=== PATIENT | female | born 1995 | race Caucasian/White ===

== ENCOUNTER 2018-07-05 14:30 | Outpatient (CLI) | payer OTHER ==
[2018-07-05] MEDS ORDERED: DEXTROSE 5%-LACTATED RINGERS 1,000 ML IV PRN (15:08)
[2018-07-05] MEDS ORDERED: PROMETHAZINE HCL INJ 25 MG/1 ML VIAL IV ONE (15:09)
[2018-07-05] MEDS ORDERED: RINGERS SOLUTION,LACTATED 1,000 ML IV ONE (15:10)
[2018-07-05] MEDS ORDERED: PROMETHAZINE HCL INJ 25 MG/1 ML VIAL ONE (15:49)
[2018-07-05 16:37] LABS: APPEARANCE,URINE CLEAR; BILIRUBIN,URINE NEGATIVE (NEGATIVE); COLOR,URINE COLORLESS; GLUCOSE, URINE NEGATIVE (NEGATIVE); KETONES,URINE TRACE mg/dL (NEGATIVE); LEUKOCYTE ESTERASE,URINE NEGATIVE (NEGATIVE); NITRITE,URINE NEGATIVE (NEGATIVE); PROTEIN,URINE NEGATIVE (NEGATIVE); URINE SPECIFIC GRAVITY 1.003; UROBILINOGEN,URINE NEGATIVE mg/dL (<2.0)
[2018-07-05 16:49] LABS: URINE AMPHETAMINES SCREEN NEGATIVE; URINE BARBITURATES SCREEN NEGATIVE; URINE BENZODIAZEPINES SCREEN NEGATIVE; URINE COCAINE SCREEN NEGATIVE; URINE MARIJUANA (THC) SCREEN NEGATIVE; URINE METHADONE SCREEN NEGATIVE; URINE PHENCYCLIDINE SCREEN NEGATIVE
== END 2018-07-05 18:29 | disposition home or self-care (01) ==
LOC: LC 14:30
PROVIDERS: ATTEND Obstetrics & Gynecology Gynecology
PROC: 4A1HXCZ Monitoring of Products of Conception, Cardiac Rate, External Approach (ICD-10-PCS; principal; 2018-07-05)
DX: O26.893 Other specified pregnancy related conditions, third trimester (principal); M54.9 Dorsalgia, unspecified; Z3A.34 34 weeks gestation of pregnancy
CPT/HCPCS: 81001; 80307; 59025; J2550

== ENCOUNTER 2018-07-07 01:09 | Inpatient (IN) | payer OTHER ==
[2018-07-07] MEDS ORDERED: NALBUPHINE HCL INJ 10 MG/1 ML AMPULE INJ ONE (02:08)
[2018-07-07] MEDS ORDERED: PROMETHAZINE HCL INJ 25 MG/1 ML VIAL IV ONE (02:08)
[2018-07-07 02:21] LABS: ABSOLUTE EOSINOPHILS # (AUTO) 0.1 10^3/uL (0.0-0.6); ABSOLUTE LYMPHOCYTES (AUTO) 2.1 10^3/uL (0.5-4.7); ABSOLUTE MONOCYTES (AUTO) 0.6 10^3/uL (0.1-1.4); ABSOLUTE NEUT (AUTO) 8.8 10^3/uL (1.7-8.2); BASOPHILS % (AUTO) 0.3 % (0-2); HEMATOCRIT 34.5 % (36.0-47.0); HEMOGLOBIN 11.7 g/dL (12.0-15.5); LYMPHOCYTES % (AUTO) 17.8 % (13-45); MEAN CORPUSCULAR HEMOGLOBIN 29.5 pg (27.0-33.4); MEAN CORPUSCULAR VOLUME 87 fl (80-97); MONOCYTES % (AUTO) 5.4 % (3-13); PLATELET COUNT 280 10^3/uL (150-450); RED BLOOD COUNT 3.98 10^6/uL (3.72-5.28); SEGMENTED NEUTROPHILS % (AUTO) 75.5 % (42-78); TOTAL CELLS COUNTED % (AUTO) 100 %; WHITE BLOOD COUNT 11.7 10^3/uL (4.0-10.5)
[2018-07-07] MEDS ORDERED: RINGERS SOLUTION,LACTATED 1,000 ML IV PRN (02:28)
[2018-07-07 02:34] LABS: APPEARANCE,URINE CLOUDY; BILIRUBIN,URINE NEGATIVE (NEGATIVE); COLOR,URINE YELLOW; GLUCOSE, URINE NEGATIVE (NEGATIVE); KETONES,URINE 20 mg/dL (NEGATIVE); LEUKOCYTE ESTERASE,URINE SMALL (NEGATIVE); NITRITE,URINE NEGATIVE (NEGATIVE); PROTEIN,URINE 30 mg/dL (NEGATIVE); URINE SPECIFIC GRAVITY 1.018; UROBILINOGEN,URINE NEGATIVE mg/dL (<2.0)
[2018-07-07 02:36] LABS: ALANINE AMINOTRANSFERASE 11 U/L (9-52); ALBUMIN 3.1 g/dL (3.5-5.0); ALKALINE PHOSPHATASE 103 U/L (38-126); AMYLASE 54 U/L (30-110); ANION GAP 10 (5-19); ASPARTATE AMINO TRANSFERASE 20 U/L (14-36); BILIRUBIN,DIRECT 0.3 mg/dL (0.0-0.4); BILIRUBIN,TOTAL 0.5 mg/dL (0.2-1.3); BLOOD UREA NITROGEN 5 mg/dL (7-20); CALCIUM 8.7 mg/dL (8.4-10.2); CARBON DIOXIDE 20 mmol/L (22-30); CHLORIDE 110 mmol/L (98-107); GLUCOSE 103 mg/dL (75-110); LIPASE 118.9 U/L (23-300); POTASSIUM 3.9 mmol/L (3.6-5.0); SODIUM 139.5 mmol/L (137-145); TOTAL PROTEIN 5.5 g/dL (6.3-8.2)
[2018-07-07 02:46] LABS: URINE AMPHETAMINES SCREEN NEGATIVE; URINE BARBITURATES SCREEN NEGATIVE; URINE BENZODIAZEPINES SCREEN NEGATIVE; URINE COCAINE SCREEN NEGATIVE; URINE MARIJUANA (THC) SCREEN NEGATIVE; URINE METHADONE SCREEN NEGATIVE; URINE PHENCYCLIDINE SCREEN NEGATIVE
[2018-07-07] MEDS ORDERED: PROMETHAZINE HCL INJ 25 MG/1 ML VIAL ONE ×2 (02:57→07:15)
[2018-07-07] MEDS ORDERED: NALBUPHINE HCL INJ 10 MG/1 ML AMPULE ONE ×2 (02:58→07:15)
--- NOTE | 2018-07-07 03:20 | RADIOLOGY REPORT (SQ) ---
EXAM DESCRIPTION: US RETROPERITONEUM COMPLETED DATE/TME: 07/07/2018 00:00 CLINICAL HISTORY: 23 years Female, EVAL FOR kidney stone, abscessor other abnormality Comparison: None. LIMITATIONS: None. FINDINGS: 10-cm right kidney, 12-cm left kidney mild prominence of the left renal collecting system, and obscured urinary bladder appear otherwise of normal size, shape, echotexture, and vascularity. Gravid uterus. IMPRESSION: No acute findings. Obscured urinary bladder. Gravid uterus.
[2018-07-07] MEDS: RINGERS SOLUTION,LACTATED 1,000 ML IV PRN ×3 (03:40→21:55)
--- NOTE | 2018-07-07 04:20 | Admission Physical ---
Datetime Report Generated by CPN: 07/07/2018 04:20 CURRENT ADMISSION Chief Complaint: Maternal Discomfort; Other Chief Complaint Other: Nephrolithiasis or Pyelo Indication for Induction: Not Applicable Admit Impression : , Intrauterine Admit Plan: Admit to Unit; Observation/Evaluation ALLERGIES Medication Allergies: No Medication Allergies: No Known Allergies (07/07/2018) Latex: No Latex Allergies Food Allergies: no Environmental Allergies: dust mites OBSTETRICAL HISTORY EDC: 08/18/2018 00:00 : 4 Para: 0 Term: 0 : 0 SAB: 1 IAB: 0 Ectopic: 1 Livin Cesareans: 0 VBACs: 0 Multiple Births: 0 Gestational Diabetes: No Rh Sensitization: No Incompetent Cervix: No RADHAMES: No Infertility: No ART Treatment: No Uterine Anomaly: No IUGR: No Hx Previous C/S: No Macrosomia: No Hx Loss/Stillborn: No PIH: No Hx : No Placenta Previa/Abruption: No Depression/PP Depression: No Post Hemorrhage: No Current Procedures: Ultrasound Obstetrical History Comments: G1: SAB G2: Ectopic G3: SAB G4: current SEE RECORDS Alcohol: No Marijuana : No Cocaine: No Other Illicit Drugs: No Cigarettes: Never Smoker. 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 Heart Disease: No Hosp/Surgery: Yes Autoimmune Disorder: No Anesthetic Complications: Yes Kidney Disease: No Abnormal Pap Smear: No Neuro/Epilepsy: No Psychiatric Disorders: No Other Medical Diseases: No Hepatitis/Liver Disease: No Significant Family History: No Varicosities/Phlebitis: No Trauma/Violence : No Thyroid Dysfunction: No Medical History Comments: ectopic/appendectomy and gallbladder/vomiting after anesthesia INFECTIOUS HISTORY Gonorrhea: No Genital Herpes: No Chlamydia: No Tuberculosis: No Syphilis: No Hepatitis: No HIV/AIDS Exposure: No Rash or Viral Illness: No HPV: No PHYSICAL EXAM General: Normal HEENT: Normal Neurologic: Normal Thyroid: Deferred Heart: Normal Lungs: Normal Breast: Deferred Back: Normal Abdomen: Normal Genitourinary Exam: Normal Extremities: Normal DTRs: Normal Pelvic Type: Adequate Physical Exam Comments: Mild CVAT (really pain is just below CVA) versus flank pain. she appears very uncomfortable and is vomiting repetitively Vital Signs: Reviewed VAGINAL EXAM Dilatation: 0 Effacement: 0 Station: -3 MEMBRANES Membranes: Intact FETUS A EGA: 34.0 Monitoring: External US FHR- Baseline: 125 Variability: Moderate 6-25bpm Accelerations: 15X15 Decelerations: None FHR Category: Category I Presentation: Vertex Admit Comment: 23yo at 34+0ega (h/o SAB x 2 and h/o ectopic) presents with several day history of left sided and left flank pain. SHe also has nausea and vomiting. Temp 99.2. Left Upper quadrant US done. Blood on UA. Pt was seen yesterday for same c/o and then was discharge and then presented last evening to Labor and delivery at [facility]. She is now here for worsening paina nd vomiting. Appears to be c/w nephrolithiasis - also mild elev WBC. Will admit for pain control and antiemetics. Will begin Rocephin BID for prophy with high suspicion for nephrolithiasis. Urine culture sent. Reassuring FWB. Begin with phenergan and Nubain. PLANS FOR LABOR AND DELIVERY Labor and Delivery: None Pain Management: Epidural Feeding Preference: Breast Benefit of Breast Feed Discussed: Yes Circumcision: Yes INFORMED CONSENT Informed Consent Obtained: Risks, Benefits and Alternatives Discussed Signature: with User ID: [email or web address]
[2018-07-07] MEDS ORDERED: PROMETHAZINE HCL INJ 25 MG/1 ML VIAL IV PRN (04:22)
[2018-07-07] MEDS ORDERED: CEFTRIAXONE INJ 1000 MG VIAL ONE (04:52)
[2018-07-07] MEDS ORDERED: CEFTRIAXONE 1 GM/D5W RTU 1 GM/50 ML RTUPB IV ONE (05:00)
[2018-07-07] MEDS ORDERED: ACETAMINOPHEN 650 MG SUPP.RECT PR PRN (07:49)
[2018-07-07] MEDS ORDERED: ACETAMINOPHEN WITH CODEINE #3 TABLET PO PRN (07:49)
[2018-07-07] MEDS: PRENATAL VITAMIN W DHA CAPSULE PO SCH (09:39)
[2018-07-07] MEDS: CEFTRIAXONE 1 GM/D5W RTU 1 GM/50 ML RTUPB IV SCH ×2 (09:39→17:29)
[2018-07-07] MEDS: FAMOTIDINE 20 MG TABLET PO SCH ×2 (09:40→21:55)
[2018-07-07] MEDS: DOCUSATE SODIUM 100 MG CAPSULE PO SCH ×2 (09:40→17:28)
[2018-07-07] MEDS: SENNOSIDES/DOCUSATE 8.6-50 MG 1 EACH TABLET PO SCH (09:40)
[2018-07-07] MEDS: HYDROMORPHONE HCL INJ/PF 2 MG/ML AMPULE IV PRN ×2 (12:51→20:27)
[2018-07-07] MEDS ORDERED: CEFTRIAXONE 1 GM/D5W RTU 1 GM/50 ML RTUPB IV SCH (22:00)
[2018-07-08] MEDS: HYDROMORPHONE HCL INJ/PF 2 MG/ML AMPULE IV PRN ×2 (05:24→21:00)
[2018-07-08] MEDS: RINGERS SOLUTION,LACTATED 1,000 ML IV PRN ×2 (05:24→19:04)
[2018-07-08] MEDS: ACETAMINOPHEN WITH CODEINE #3 TABLET PO PRN ×2 (10:32→15:44)
[2018-07-08] MEDS: DOCUSATE SODIUM 100 MG CAPSULE PO SCH ×2 (10:33→18:22)
[2018-07-08] MEDS: FAMOTIDINE 20 MG TABLET PO SCH ×2 (10:33→21:36)
[2018-07-08] MEDS: PRENATAL VITAMIN W DHA CAPSULE PO SCH (10:33)
[2018-07-08] MEDS: SENNOSIDES/DOCUSATE 8.6-50 MG 1 EACH TABLET PO SCH (10:34)
[2018-07-08] MEDS: CEFTRIAXONE 1 GM/D5W RTU 1 GM/50 ML RTUPB IV SCH ×2 (10:34→21:36)
--- NOTE | 2018-07-08 20:09 | PDOC PROGRESS REPORT ---
Subjective Progress Note for:: 07/08/18 Subjective:: continues to c/o significant pain that is moving around to side Reason For Visit: and flank pain, suspicious for nephrolithiasis Physical Exam - Physical Exam Vital Signs: Temp Pulse Resp BP Pulse Ox 98.4 F 92 16 119/68 96 07/08/18 15:19 07/08/18 15:19 07/08/18 15:19 07/08/18 15:19 07/08/18 15:19 Intake & Output 07/07/18 07/08/18 07/09/18 06:59 06:59 06:59 Intake Total 1000 3235 1000 Output Total 1500 Balance 1000 1735 1000 Weight 97 kg 92 kg General appearance: PRESENT: no acute distress, cooperative Result Laboratory Results: 07/07/18 02:07 07/07/18 02:07 Impressions: Renal Ultrasound 07/07/18 00:00 IMPRESSION: No acute findings. Obscured urinary bladder. Gravid uterus. Assessment & Plan - Diagnosis (1) Nephrolithiasis Is this a current diagnosis for this admission?: Yes (2) Vomiting Qualifiers: Vomiting type: unspecified Nausea presence: with nausea Is this a current diagnosis for this admission?: Yes - Time Time Spent with patient: Less than 15 minutes Medications reviewed and adjusted accordingly: Yes - try to use PO pain meds Anticipated discharge: Home Within: within 24 hours - Inpatient Certification Based on my medical assessment, after consideration of the patient's comorbidities, presenting symptoms, or acuity I expect that the services needed warrant INPATIENT care.: Yes I certify that my determination is in accordance with my understanding of Medicare's requirements for reasonable and necessary INPATIENT services [42 CFR 412.3e].: Yes Medical Necessity: Need For IV Fluids, Need for Pain Control - Plan Summary Plan Summary: patient still c/o significant pain. will continue hydration and plan for discharge in the AM
[2018-07-09] MEDS: HYDROMORPHONE HCL INJ/PF 2 MG/ML AMPULE IV PRN (02:45)
--- NOTE | 2018-07-09 06:40 | PDOC PROGRESS REPORT ---
Subjective Progress Note for:: 07/09/18 Subjective:: continues to c/o significant pain that is moving around to side. Had to have 2 doses of iv dilaudid overnight to maintain pain control. Reason For Visit: Physical Exam - Physical Exam Vital Signs: Temp Pulse Resp BP Pulse Ox 98.2 F 82 16 116/64 97 07/09/18 03:47 07/09/18 03:47 07/09/18 00:00 07/09/18 03:47 07/09/18 03:47 Intake & Output 07/07/18 07/08/18 07/09/18 06:59 06:59 06:59 Intake Total 1000 3235 1000 Output Total 1500 700 Balance 1000 1735 300 Weight 97 kg 92 kg General appearance: PRESENT: no acute distress, cooperative - +CVA tenderness on left lower flank Result Laboratory Results: 07/07/18 02:07 07/07/18 02:07 Impressions: Renal Ultrasound 07/07/18 00:00 IMPRESSION: No acute findings. Obscured urinary bladder. Gravid uterus. Assessment & Plan - Diagnosis (1) Nephrolithiasis Is this a current diagnosis for this admission?: Yes (2) Vomiting Qualifiers: Vomiting type: unspecified Nausea presence: with nausea Is this a current diagnosis for this admission?: Yes - Time Time Spent with patient: Less than 15 minutes Anticipated discharge: Home Within: within 24 hours - Plan Summary Plan Summary: d/w patient regarding pain control and if requiring IV pain med could not discharge. she feels that her pain control issue was due to 'waiting too long betwn medication doses" d/w pt that would prefer that she be able to manage with po meds and that her pain improve enough to nto need narcotics any longer due to concerns of MYA in with continued use and risks of dependence. Patient voiced understanding and eager to pass stone. Will contineu to monitor this AM and if able to discharge around lunchtime with PO pain meds for pain control and close follow up in the office. reviewed negative urine cultuer with patient.
[2018-07-09] MEDS: CEFTRIAXONE 1 GM/D5W RTU 1 GM/50 ML RTUPB IV SCH (09:02)
[2018-07-09] MEDS: PRENATAL VITAMIN W DHA CAPSULE PO SCH (09:03)
[2018-07-09] MEDS: ACETAMINOPHEN WITH CODEINE #3 TABLET PO PRN (09:03)
[2018-07-09] MEDS: FAMOTIDINE 20 MG TABLET PO SCH (09:03)
[2018-07-09] MEDS: DOCUSATE SODIUM 100 MG CAPSULE PO SCH (09:04)
[2018-07-09] MEDS: SENNOSIDES/DOCUSATE 8.6-50 MG 1 EACH TABLET PO SCH (09:04)
--- NOTE | 2018-07-09 13:02 | PDOC DISCHARGE SUMMARY ---
General - Admit/Disc Date/PCP Admission Date/Primary Care Provider: 07/07/18 02:08 Discharge Date: 07/09/18 - Discharge Diagnosis (1) Nephrolithiasis Is this a current diagnosis for this admission?: Yes (2) Vomiting Is this a current diagnosis for this admission?: Yes - Additional Information Discharge Diet: Regular Discharge Activity: Activity As Tolerated Prescriptions: Acetaminophen with Codeine [Tylenol #3 Tablet] 1 each PO Q6H PRN #15 tablet PRN Reason: For Pain Promethazine HCl [Phenergan Inj 25 mg/1 ml Vial] 12.5 mg PO Q6HP PRN #30 tab PRN Reason: For Nausea/Vomiting Home Medications: Aspirin [Aspirin 81 mg Chewable Tablet] 81 mg PO DAILY 07/05/18 Vit,Calc76/Iron/Folic [Prenatabs Rx Tablet] 1 each PO DAILY 07/05/18 B12/FA/D3/Calc Cit/Zn Aa Chelt [Rx Balance Int Capsule] 1 cap PO DAILY PRN 07/07/18 Acetaminophen with Codeine [Tylenol #3 Tablet] 1 each PO Q6H PRN #15 tablet 07/09/18 Promethazine HCl [Phenergan Inj 25 mg/1 ml Vial] 12.5 mg PO Q6HP PRN #30 tab 07/09/18 History of Present Illness Patient complains of: Left-sided pain History of Present Illness: KIKI MENDENHALL is a 23 year old , presented to labor and delivery complaining of left-sided flank pain. Patient was also having persistent nausea and vomiting. She had hematuria and was started on Rocephin twice daily. She subsequently underwent a renal ultrasound which showed possible lithiasis. Patient has been receiving Dilaudid for her flank pain overnight. Hospital Course Hospital Course: Patient remained afebrile during her hospital stay. Patient's pain was managed with Dilaudid, IV. Her nausea and vomiting resolved with promethazine. Her pain is controlled with Tylenol with codeine. She feels that she is ready to go home. Physical Exam - Physical Exam Vital Signs: Temp Pulse Resp BP Pulse Ox 98.0 F 79 20 114/58 L 99 07/09/18 07:32 07/09/18 07:32 07/09/18 07:32 07/09/18 07:32 07/09/18 07:32 Intake & Output 07/08/18 07/09/18 07/10/18 06:59 06:59 06:59 Intake Total 3235 1000 1100 Output Total 9019 351 7801 Balance 1735 300 -1300 Weight 92 kg General appearance: PRESENT: no acute distress Respiratory exam: PRESENT: clear to auscultation venita Cardiovascular exam: PRESENT: RRR GI/Abdominal exam: PRESENT: normal bowel sounds, soft Extremities exam: ABSENT: calf tenderness, clubbing, full ROM, joint swelling, pedal edema, tenderness, +1 edema, +2 edema, other Musculoskeletal exam: PRESENT: tenderness - Mild tenderness on the left side, flank Result Laboratory Results: 07/07/18 02:07 07/07/18 02:07 07/07/18 07:52 Clean Catch Midstream Urine Culture - Final NO GROWTH 2 DAYS Impressions: Renal Ultrasound 07/07/18 00:00 IMPRESSION: No acute findings. Obscured urinary bladder. Gravid uterus. Plan Discharge Plan: 1. Discharge home today 2. Prescription for promethazine and Tylenol with codeine given 3. Follow-up in the office next week Time Spent: Less than 30 Minutes
[2018-07-09 14:02] VITALS: BP 111/60
== END 2018-07-09 14:50 | disposition home or self-care (01) | DRG 833 ==
LOC: LC 01:09 → LR 02:08 → 2S 08:05
PROVIDERS: ADMIT Student in an Organized Health Care Education/Training Program; ATTEND Student in an Organized Health Care Education/Training Program
PROC: 4A1HXCZ Monitoring of Products of Conception, Cardiac Rate, External Approach (ICD-10-PCS; principal; 2018-07-07)
DX: O26.833 Pregnancy related renal disease, third trimester (principal); O21.9 Vomiting of pregnancy, unspecified; N20.0 Calculus of kidney; Z79.899 Other long term (current) drug therapy; Z3A.34 34 weeks gestation of pregnancy
CPT/HCPCS: 36415; 59025; 76770; 80053; 80307; 81001; 82150; 83690; 85025; 87086; J0696; J1170; J2300; J2550; J3490; J7120

== ENCOUNTER 2018-08-19 19:36 | Inpatient (IN) | payer OTHER ==
[2018-08-19] MEDS ORDERED: RINGERS SOLUTION,LACTATED 300 ML IV ONE (19:54)
[2018-08-19] MEDS ORDERED: DINOPROSTONE 10 MG VAGINAL INSERT.SR PV PRN (19:54)
[2018-08-19 20:32] LABS: APPEARANCE,URINE SLIGHTLY-CLOUDY; BILIRUBIN,URINE NEGATIVE (NEGATIVE); COLOR,URINE YELLOW; GLUCOSE, URINE NEGATIVE (NEGATIVE); KETONES,URINE NEGATIVE (NEGATIVE); LEUKOCYTE ESTERASE,URINE TRACE (NEGATIVE); NITRITE,URINE NEGATIVE (NEGATIVE); PROTEIN,URINE NEGATIVE (NEGATIVE); URINE SPECIFIC GRAVITY 1.012; UROBILINOGEN,URINE NEGATIVE mg/dL (<2.0)
[2018-08-19 20:47] LABS: URINE AMPHETAMINES SCREEN NEGATIVE; URINE BARBITURATES SCREEN NEGATIVE; URINE BENZODIAZEPINES SCREEN NEGATIVE; URINE COCAINE SCREEN NEGATIVE; URINE MARIJUANA (THC) SCREEN NEGATIVE; URINE METHADONE SCREEN NEGATIVE; URINE PHENCYCLIDINE SCREEN NEGATIVE
[2018-08-19 21:03] LABS: ABSOLUTE EOSINOPHILS # (AUTO) 0.1 10^3/uL (0.0-0.6); ABSOLUTE LYMPHOCYTES (AUTO) 2.4 10^3/uL (0.5-4.7); ABSOLUTE MONOCYTES (AUTO) 0.6 10^3/uL (0.1-1.4); ABSOLUTE NEUT (AUTO) 6.1 10^3/uL (1.7-8.2); BASOPHILS % (AUTO) 0.1 % (0-2); EOSINOPHILS % (AUTO) 0.7 % (0-6); HEMATOCRIT 37.2 % (36.0-47.0); HEMOGLOBIN 12.6 g/dL (12.0-15.5); LYMPHOCYTES % (AUTO) 25.8 % (13-45); MEAN CORPUSCULAR HEMOGLOBIN 30.1 pg (27.0-33.4); MEAN CORPUSCULAR HGB CONC 33.9 g/dL (32.0-36.0); MEAN CORPUSCULAR VOLUME 89 fl (80-97); MONOCYTES % (AUTO) 6.6 % (3-13); PLATELET COUNT 260 10^3/uL (150-450); RED BLOOD COUNT 4.18 10^6/uL (3.72-5.28); RED CELL DISTRIBUTION WIDTH 15.3 % (11.5-14.0); SEGMENTED NEUTROPHILS % (AUTO) 66.8 % (42-78); TOTAL CELLS COUNTED % (AUTO) 100 %; WHITE BLOOD COUNT 9.1 10^3/uL (4.0-10.5)
[2018-08-19] MEDS ORDERED: DINOPROSTONE 10 MG VAGINAL INSERT.SR ONE (23:33)
[2018-08-20] MEDS: RINGERS SOLUTION,LACTATED 1,000 ML IV PRN (00:06)
[2018-08-20] MEDS ORDERED: ZOLPIDEM TARTRATE 5 MG TABLET PO ONE (01:03)
[2018-08-20] MEDS ORDERED: ZOLPIDEM TARTRATE 5 MG TABLET ONE (01:05)
--- NOTE | 2018-08-20 02:42 | Admission Physical ---
Datetime Report Generated by CPN: 08/20/2018 02:42 CURRENT ADMISSION Chief Complaint: Scheduled Induction of Labor Chief Complaint Other: Nephrolithiasis or Pyelo Indication for Induction: Post Dates Admit Impression : Term, Intrauterine ; No Active Labor Admit Plan: Admit to Unit; Initiate Labor Induction Protocol ALLERGIES Medication Allergies: No Medication Allergies: No Known Allergies (07/07/2018) Latex: No Latex Allergies Food Allergies: coconut Environmental Allergies: dust mites OBSTETRICAL HISTORY EDC: 08/18/2018 00:00 : 4 Para: 0 Term: 0 : 0 SAB: 2 IAB: 0 Ectopic: 1 Livin Cesareans: 0 VBACs: 0 Multiple Births: 0 Gestational Diabetes: No Rh Sensitization: No Incompetent Cervix: No RADHAMES: No Infertility: No ART Treatment: No Uterine Anomaly: No IUGR: No Hx Previous C/S: No Macrosomia: No Hx Loss/Stillborn: No PIH: No Hx : No Placenta Previa/Abruption: No Depression/PP Depression: No Post Hemorrhage: No Current Procedures: Ultrasound Obstetrical History Comments: G1: SAB G2: Ectopic G3: SAB G4: current SEE RECORDS Alcohol: No Marijuana : No Cocaine: No Other Illicit Drugs: No Cigarettes: Never Smoker. 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 Heart Disease: No Hosp/Surgery: Yes Autoimmune Disorder: No Anesthetic Complications: Yes Kidney Disease: No Abnormal Pap Smear: No Neuro/Epilepsy: No Psychiatric Disorders: No Other Medical Diseases: No Hepatitis/Liver Disease: No Significant Family History: No Varicosities/Phlebitis: No Trauma/Violence : No Thyroid Dysfunction: No Medical History Comments: ectopic/appendectomy and gallbladder/vomiting after anesthesia INFECTIOUS HISTORY Gonorrhea: No Genital Herpes: No Chlamydia: No Tuberculosis: No Syphilis: No Hepatitis: No HIV/AIDS Exposure: No Rash or Viral Illness: No HPV: No PHYSICAL EXAM General: Normal HEENT: Normal Neurologic: Normal Thyroid: Normal Heart: Normal Lungs: Normal Breast: Normal Back: Normal Abdomen: Normal Genitourinary Exam: Normal Extremities: Normal DTRs: Normal Pelvic Type: Adequate Physical Exam Comments: Mild CVAT (really pain is just below CVA) versus flank pain. she appears very uncomfortable and is vomiting repetitively Vital Signs: Reviewed; Within Normal Limits VAGINAL EXAM Dilatation: 0 Effacement: 50 Station: - Contraction Comments: irregular MEMBRANES Membranes: Intact FETUS A EGA: 40.2 Monitoring: External US FHR- Baseline: 120s Variability: Moderate 6-25bpm Accelerations: 10X10 Decelerations: None FHR Category: Category I Presentation: Vertex Admit Comment: Pt presents to L_D for a scheduled labor induction with cervidil secondary to postdates. GBS Negative. PLANS FOR LABOR AND DELIVERY Labor and Delivery: None Pain Management: Epidural Feeding Preference: Breast Benefit of Breast Feed Discussed: Yes Circumcision: Yes INFORMED CONSENT Informed Consent Obtained: Risks, Benefits and Alternatives Discussed Signature: with User ID: [email or web address]
[2018-08-20] MEDS ORDERED: MAG HYDROX/AL HYDROX/SIMETH SUSP 30 ML UDCUP PO ONE (12:03)
[2018-08-20] MEDS ORDERED: MAG HYDROX/AL HYDROX/SIMETH SUSP 30 ML UDCUP ONE (12:03)
[2018-08-20] MEDS ORDERED: MISOPROSTOL 0.1 MG TABLET PO ONE (12:45)
[2018-08-20] MEDS ORDERED: MISOPROSTOL 0.1 MG TABLET PV ONE (12:50)
[2018-08-20] MEDS ORDERED: ONDANSETRON HCL INJ/PF 4 MG/2 ML SDV IV ONE (13:34)
[2018-08-20] MEDS ORDERED: ONDANSETRON HCL INJ/PF 4 MG/2 ML SDV ONE (13:35)
[2018-08-20] MEDS ORDERED: MISOPROSTOL 0.1 MG TABLET ONE (14:06)
[2018-08-20] MEDS ORDERED: OXYTOCIN/NORMAL SALINE 20 UNIT/1,000 ML RTUINJ ONE (15:57)
[2018-08-20] MEDS ORDERED: OXYTOCIN 10 UNIT/ML VIAL ONE (15:57)
[2018-08-20] MEDS ORDERED: MISOPROSTOL 0.2 MG TABLET ONE (15:57)
[2018-08-20] MEDS ORDERED: LIDOCAINE 1% INJ-PF (10 MG/ML) 30 ML SDV ONE (15:57)
[2018-08-20] MEDS: OXYTOCIN/NORMAL SALINE 20 UNIT/1,000 ML RTUINJ IV PRN (18:46)
[2018-08-21] MEDS ORDERED: NALBUPHINE HCL INJ 10 MG/1 ML AMPULE ONE ×2 (00:23→00:24)
[2018-08-21] MEDS ORDERED: PROMETHAZINE HCL INJ 25 MG/1 ML VIAL ONE (00:23)
[2018-08-21] MEDS ORDERED: PROMETHAZINE HCL INJ 25 MG/1 ML VIAL IV ONE (05:52)
[2018-08-21] MEDS ORDERED: NALBUPHINE HCL INJ 10 MG/1 ML AMPULE INJ ONE (05:52)
[2018-08-21] MEDS ORDERED: ONDANSETRON 4 MG TAB.RAPDIS ONE (07:05)
[2018-08-21] MEDS ORDERED: ONDANSETRON 4 MG TAB.RAPDIS PO ONE (07:07)
[2018-08-21] MEDS: RINGERS SOLUTION,LACTATED 1,000 ML IV PRN ×2 (08:18→16:35)
[2018-08-21] MEDS ORDERED: LIDOCAINE 1.5%/EPINEPHRINE INJ 5 ML AMP ONE (10:29)
[2018-08-21] MEDS ORDERED: EPHEDRINE SULFATE INJ 50 MG/1 ML AMPULE ONE (10:30)
[2018-08-21] MEDS ORDERED: BUPIVACAINE HCL 0.25 % INJ/PF (2.5 MG/1 ML) 30 ML VIAL ONE ×2 (10:31→15:27)
[2018-08-21] MEDS ORDERED: FENTANYL/BUPIVACAINE/NS/PF 300 MCG/150 ML RTUINJ EPI ONE (10:31)
[2018-08-21] MEDS ORDERED: FENTANYL CITRATE INJ/PF 100 MCG/2 ML AMPUL ONE ×3 (11:03→22:38)
[2018-08-21] MEDS ORDERED: ONDANSETRON HCL INJ/PF 4 MG/2 ML SDV ONE ×2 (17:41→22:38)
[2018-08-21] MEDS ORDERED: ONDANSETRON HCL INJ/PF 4 MG/2 ML SDV IV ONE (17:41)
[2018-08-21] MEDS ORDERED: OXYTOCIN/NORMAL SALINE 20 UNIT/1,000 ML RTUINJ ONE (18:08)
[2018-08-21] MEDS: OXYTOCIN/NORMAL SALINE 20 UNIT/1,000 ML RTUINJ IV PRN (19:41)
[2018-08-21] MEDS ORDERED: CEFAZOLIN 1 GM/D5W RTU 1 GM/50 ML RTUPB IV ONE ×2 (21:44→22:22)
[2018-08-21] MEDS ORDERED: CEFAZOLIN 1 GM/D5W RTU 1 GM/50 ML RTUPB IV SCH (22:00)
[2018-08-21] MEDS ORDERED: CITRIC ACID/SODIUM CITRATE ORAL SOLN 15 ML UDCUP ONE (22:22)
[2018-08-21] MEDS ORDERED: OXYTOCIN/NORMAL SALINE 20 UNIT/1,000 ML RTUINJ IV PRN (22:30)
[2018-08-21] MEDS ORDERED: ACETAMINOPHEN 325 MG TABLET PO PRN (22:30)
[2018-08-21] MEDS ORDERED: ACETAMINOPHEN 1,000 MG/100 ML RTUPB IV PRN (22:30)
[2018-08-21] MEDS ORDERED: HYDROMORPHONE HCL INJ/PF 2 MG/ML AMPULE IV PRN (22:30)
[2018-08-21] MEDS ORDERED: SIMETHICONE 80 MG TAB.CHEW PO PRN (22:30)
[2018-08-21] MEDS ORDERED: PROMETHAZINE HCL INJ 25 MG/1 ML VIAL IV PRN (22:30)
[2018-08-21] MEDS ORDERED: RINGERS SOLUTION,LACTATED 1,000 ML IV PRN (22:30)
[2018-08-21] MEDS ORDERED: OXYCODONE-ACETAMINOPHEN 5-325 MG TABLET PO PRN ×2 (22:30)
[2018-08-21] MEDS ORDERED: DIPH/PERTUSS(ACELL)/TETANUS VAC/PF 0.5 ML SYR (>=10YO) IM PRN (22:30)
[2018-08-21] MEDS ORDERED: MEASLES,MUMPS&RUBELLA VACC/PF 0.5 ML VIAL SUBCUT PRN (22:30)
[2018-08-21] MEDS ORDERED: OXYTOCIN 10 UNIT/ML VIAL ONE (22:38)
[2018-08-21] MEDS ORDERED: MIDAZOLAM 2 MG/2 ML INJ ONE (22:38)
[2018-08-21] MEDS ORDERED: MORPHINE SULFATE 10 MG/ML INJ ONE (22:38)
[2018-08-21] MEDS ORDERED: KETOROLAC TROMETHAMINE INJ/PF 30 MG/1 ML SDV ONE (23:58)
[2018-08-21] MEDS ORDERED: ACETAMINOPHEN 1,000 MG/100 ML RTUPB IV ONE (23:59)
[2018-08-22] MEDS ORDERED: OXYTOCIN/NORMAL SALINE 20 UNIT/1,000 ML RTUINJ ONE (00:01)
--- NOTE | 2018-08-22 00:03 | Operative Report ---
Operative Report DATE OF SURGERY: 08/21/18 PREOPERATIVE DIAGNOSIS: Persistent OP presentation, thick meconium, arrest of d escent POSTOPERATIVE DIAGNOSIS: Same OPERATION: Primary via low transverse uterine incision SURGEON: ARIELLE ROTHMAN ANESTHESIA: Spinal TISSUE REMOVED OR ALTERED: Placenta COMPLICATIONS: None ESTIMATED BLOOD LOSS: 400 cc INTRAOPERATIVE FINDINGS: Viable male infant thick meconium in a direct OP presentation. baby weight was 8 pounds 2 ounces PROCEDURE: Patient has been induced starting Sunday evening. She progressed to complete tonight and pushed for 4 hours with an epidural and was unable to deliver the baby. The baby has a persistent occiput posterior presentation despite aggressive positioning. The estimated weight preoperatively is 4500 g. The baby station is approximately +2 directly OP. There is a large amount of caput and scalp edema. She is exhausted and can no longer push. We have discussed operative delivery with vacuum as well as . Because of the risks of delivering a large baby vaginally we plan to proceed with a . Patient was taken to the OR and placed in supine position after her spinal anesthesia. She is prepared and draped in sterile fashion. Tristan was placed for drainage of the bladder. Low transverse incision was made and carried down the level of the fascia. The fascial incision was made with knife and extended bilaterally with curved Kaplan scissors. The fascia was off the rectus muscles using sharp and blunt dissection. The rectus muscles are in the midline. The peritoneum was entered without incident. Bladder blade was placed in uterine segment was identified. A low transverse incision was made creating a bladder flap. Bladder blade was placed low transverse uterine incision was made with the knife and extended with fingertips. The nurse assisted the delivery by giving a vaginal hand to push the baby up. The baby was delivered with some fundal pressure. Mouth and nose were suctioned free. The cord is doubly clamped and cut. Baby is passed off to the employee placement specialist in attendance. The placenta was manually extracted with trailing membranes. The uterus was externalized wrapped in a moist lap sponge. Uterine contents wiped free. Uterus was closed with a running locking layer of 0 chromic suture using the second layer to imbricate the first completing a double layer closure of the uterus. There was a bleeding vessel on the left below the incision and this was ligated above and below the bleeding area using a 0 chromic. This stopped the bleeding quite well. It appears the vessel was a small arterial branch of the uterine artery. The bladder flap was closed with a running 2-0 chromic stitch. The pelvis was irrigated and suctioned free of fluid the uterus was replaced in the abdomen. The abdominal wall peritoneum was closed with running 2-0 chromic stitch. Fascia was closed with a running 0 Vicryl in 2 segments. Luly's layer was brought together with 0 plain gut stitch and the skin was closed with running subcuticular 4-0 undyed Vicryl stitch. The wound was dressed mother and baby did well.
[2018-08-22] MEDS ORDERED: MEPERIDINE HCL/PF INJ 25 MG/1 ML DISP.SYRIN ONE (00:10)
[2018-08-22] MEDS ORDERED: FENTANYL CITRATE INJ/PF 100 MCG/2 ML AMPUL ONE (00:31)
[2018-08-22] MEDS ORDERED: MORPHINE SULFATE 10 MG/ML INJ ONE (01:55)
--- NOTE | 2018-08-22 02:45 | Delivery Summary ---
Del Sum A-C Datetime Report Generated by CPN: 08/22/2018 02:44 DELIVERY PERSONNEL DELIVERY PERSONNEL: [id number] Delivery Doctor:: Suzie Payton MD Anesthesiologist:: Dr. Christensen USER EXPERIENCE ANALYST:: Leandro Reynaga CRNA Labor and Delivery Nurse:: Whitney Bejarano RN Labor and Delivery Nurse:: Sultana Wick RN Donor Recruitment Manager:: Whitney Bejarano RN Neonatal Nurse Practitioner:: DAYA Kendrick Nursery Nurse:: Adore Morrison RN Restaurant Delivery Driver/FORECLOSURE SPECIALIST: ST Navdeep Restaurant Delivery Driver/FORECLOSURE SPECIALIST: Sunshine Hernandez, ST MATERNAL INFORMATION Delivery Anesthesia: Spinal Medications After Delivery: Pitocin Drip 20 Units/1000ml NSS Maternal Complications: None LABOR SUMMARY EDC: 08/18/2018 00:00 No. Babies in Womb: 1 Attempted: No Labor Anesthesia: Epidural LABOR INFORMATION Reason for Induction: Other Reason for Induction- Other: ELECTIVE Onset of Labor: 08/21/2018 13:56 Complete Dilatation: 08/21/2018 18:30 Cervical Ripening Agents: Cervidil; Tristan Balloon; Cytotec @ Oxytocin: Induction Group B Beta Strep: negative Antibiotics # of Doses: 0 Steroids Given: None Reason Steroids Not Administered: Not Applicable MEMBRANES Membranes Rupture Method: Artificial Rupture of Membranes: 08/21/2018 04:03 Length of Rupture (hr): 19.07 Amniotic Fluid Color: Light Meconium Amniotic Fluid Amount: Small Amniotic Fluid Odor: Normal STAGES OF LABOR Stage 1 hr: 4 Stage 1 min: 34 Stage 2 hr: 4 Stage 2 min: 37 Stage 3 hr: 0 Stage 3 min: 1 Total Time in Labor hr: 9 Total Time in Labor min: 12 VAGINAL DELIVERY Episiotomy: None Laceration #1: None Laceration Extension #1: N/A Laceration Repair: Not Applicable Sponge Count Correct: N/A Sharps Count Correct: N/A CSECTION DELIVERY Primary Indication: Arrest of Descent CSection Urgency: Non-Scheduled CSection Incidence: Primary Labor: Labor Elective: Nonelective CSection Incision: Lower Uterine Transverse BABY A INFORMATION Infant Delivery Date/Time: 08/21/2018 23:07 Method of Delivery: Born in Route : No : N/A Forceps: N/A Vacuum Extraction: N/A Shoulder Dystocia : No PRESENTATION/POSITION BABY A Presentation: Cephalic Cephalic Presentation: Vertex Vertex Position: direct OP Breech Presentation: N/A PLACENTA INFORMATION BABY A Placenta Delivery Time : 08/21/2018 23:08 Placenta Method of Delivery: Spontaneous Placenta Status: Delivered SCORES BABY A Heart Rate 1 min: >100 bpm Resp Effort 1 min: Absent Reflex Irritability 1 min: No Response Muscle Tone 1 min: Some Flexion of Extremities Color 1 min: Blue/Pale Resuscitation Effort 1 min: Tactile Stimulation; Oxygen; PPV/NCPAP SCORE 1 MIN: 3 Heart Rate 5 min: >100 bpm Resp Effort 5 min: Slow, Irregular Reflex Irritability 5 min: Grimace Muscle Tone 5 min: Active Motion Color 5 min: Body [place], Extremities Blue Resuscitation Effort 5 min: Tactile Stimulation; Oxygen; PPV/NCPAP SCORE 5 MIN: 7 Heart Rate 10 min: >100 bpm Resp Effort 10 min: Good Cry Reflex Irritability 10 min: Cough or Sneeze or Pulls Away Muscle Tone 10 min: Active Motion Color 10 min: Body [place], Extremities Blue SCORE 10 MIN: 9 INFORMATION BABY A Gestational Age at Delivery: 40.3 Gestational Status: Full Term- 39- 40.6 Weeks Infant Outcome : Liveborn Condition : Stable Sex: Male IDENTIFICATION BABY A Infant Verification Date/Time: 08/21/2018 23:22 ID Band Number: [id number] Mother's Name Verified: Yes RN Verifying Infant: NDoyle RN, EJilek RN CORD INFORMATION BABY A No. Cord Vessels: 3 Nuchal Cord : N/A Cord Blood Taken: Yes-For Storage (Mom's Blood type +) Suction: Mouth; Nose ASSESSMENT BABY A Skin to Skin: No Transferred To: [facility] BABY B INFORMATION : N/A
[2018-08-22] MEDS: CEFAZOLIN 1 GM/D5W RTU 1 GM/50 ML RTUPB IV SCH (03:17)
[2018-08-22] MEDS: IBUPROFEN 800 MG TABLET PO SCH ×2 (03:17→06:32)
[2018-08-22] MEDS ORDERED: KETOROLAC TROMETHAMINE INJ/PF 30 MG/1 ML SDV IV SCH ×2 (06:00→18:00)
[2018-08-22 06:14] LABS: HEMATOCRIT 31.5 % (36.0-47.0); MEAN CORPUSCULAR HEMOGLOBIN 29.9 pg (27.0-33.4); MEAN CORPUSCULAR HGB CONC 33.4 g/dL (32.0-36.0); MEAN CORPUSCULAR VOLUME 90 fl (80-97); PLATELET COUNT 173 10^3/uL (150-450); RED BLOOD COUNT 3.51 10^6/uL (3.72-5.28); RED CELL DISTRIBUTION WIDTH 15.3 % (11.5-14.0)
[2018-08-22 06:18] LABS: HEMOGLOBIN 10.5 g/dL (12.0-15.5); WHITE BLOOD COUNT 19.7 10^3/uL (4.0-10.5)
[2018-08-22] MEDS ORDERED: DIPH/PERTUSS(ACELL)/TETANUS VAC/PF 0.5 ML SYR (>=10YO) IM PRN ×3 (08:00→09:03)
[2018-08-22] MEDS ORDERED: MEASLES,MUMPS&RUBELLA VACC/PF 0.5 ML VIAL SUBCUT PRN ×3 (08:00→09:03)
[2018-08-22] MEDS ORDERED: PROMETHAZINE HCL INJ 25 MG/1 ML VIAL IV PRN ×2 (08:00→09:03)
--- NOTE | 2018-08-22 08:41 | PDOC PROGRESS REPORT ---
Subjective-OB Progress Note for:: 08/22/18 Physical Exam (OB) Vital Signs: Temp Pulse Resp BP Pulse Ox 98.3 F 98 20 127/63 H 96 08/22/18 07:21 08/22/18 07:21 08/22/18 07:21 08/22/18 07:21 08/22/18 07:21 Intake & Output 08/21/18 08/22/18 08/23/18 06:59 06:59 06:59 Intake Total 1000 1150 Output Total 200 Balance 1000 1150 -200 Weight 92 kg - PIH/Pre-Eclampsia DTR's: 2 + Clonus: Negative Headache: Absent Epigastric Pain: No Visual Changes: No - Dressing Removed: No Incision: Dressing Closure Type: Opsite - Lochia Lochia Amount: Scant < 10 ml Lochia Color: Rubra/Red - Abdomen Description: Tender, Soft, Round Hernia Present: No Bowel Sounds: Normoactive Flatus Presence: Present Stool: No Fundal Description: Firm Fundal Height: u/u - u/2 Objective-Diagnostic Laboratory: 08/22/18 05:46 08/22/18 05:46 WBC 19.7 H D RBC 3.51 L Hgb 10.5 L D Hct 31.5 L MCV 90 MCH 29.9 MCHC 33.4 RDW 15.3 H Plt Count 173
[2018-08-22] MEDS ORDERED: ZOLPIDEM TARTRATE 5 MG TABLET PO PRN (08:48)
[2018-08-22] MEDS ORDERED: ACETAMINOPHEN WITH CODEINE #3 TABLET PO PRN (08:48)
[2018-08-22] MEDS ORDERED: DIBUCAINE 1% OINTMENT 56 GM TP PRN (08:48)
[2018-08-22] MEDS ORDERED: OXYTOCIN/NORMAL SALINE 20 UNIT/1,000 ML RTUINJ IV PRN ×2 (08:48→09:03)
[2018-08-22] MEDS ORDERED: BENZOCAINE/MENTHOL AEROSOL SPRAY 56 ML TOP PRN (08:48)
[2018-08-22] MEDS ORDERED: ACETAMINOPHEN 325 MG TABLET PO PRN (09:03)
[2018-08-22] MEDS ORDERED: SIMETHICONE 80 MG TAB.CHEW PO PRN (09:03)
[2018-08-22] MEDS ORDERED: OXYCODONE-ACETAMINOPHEN 5-325 MG TABLET PO PRN ×2 (09:03)
[2018-08-22] MEDS ORDERED: PRENATAL VITAMIN W DHA CAPSULE PO SCH ×2 (10:00)
[2018-08-22] MEDS ORDERED: DOCUSATE SODIUM 100 MG CAPSULE PO SCH ×2 (10:00)
[2018-08-22] MEDS: SENNOSIDES/DOCUSATE 8.6-50 MG 1 EACH TABLET PO SCH (10:22)
[2018-08-22] MEDS: PRENATAL VITAMIN W DHA CAPSULE PO SCH (10:23)
[2018-08-22] MEDS: ACETAMINOPHEN WITH CODEINE #3 TABLET PO PRN ×2 (10:24→21:21)
[2018-08-22] MEDS ORDERED: RINGERS SOLUTION,LACTATED 500 ML IV ONE (14:00)
[2018-08-22] MEDS: KETOROLAC TROMETHAMINE INJ/PF 30 MG/1 ML SDV IV SCH ×3 (14:39→22:48)
[2018-08-22] MEDS: DOCUSATE SODIUM 100 MG CAPSULE PO SCH (17:30)
[2018-08-22] MEDS: FERROUS SULFATE 325 MG TABLET PO SCH (17:30)
[2018-08-23] MEDS: KETOROLAC TROMETHAMINE INJ/PF 30 MG/1 ML SDV IV SCH ×2 (00:28→08:08)
[2018-08-23] MEDS: IBUPROFEN 800 MG TABLET PO SCH ×3 (05:57→17:24)
[2018-08-23 08:02] LABS: HEMOGLOBIN 9.6 g/dL (12.0-15.5); MEAN CORPUSCULAR HEMOGLOBIN 30.6 pg (27.0-33.4); MEAN CORPUSCULAR HGB CONC 34.2 g/dL (32.0-36.0); MEAN CORPUSCULAR VOLUME 90 fl (80-97); PLATELET COUNT 208 10^3/uL (150-450); RED BLOOD COUNT 3.12 10^6/uL (3.72-5.28); RED CELL DISTRIBUTION WIDTH 15.7 % (11.5-14.0); WHITE BLOOD COUNT 12.8 10^3/uL (4.0-10.5)
[2018-08-23] MEDS: CEFAZOLIN 1 GM/D5W RTU 1 GM/50 ML RTUPB IV SCH (08:13)
[2018-08-23] MEDS: ACETAMINOPHEN WITH CODEINE #3 TABLET PO PRN ×2 (08:32→16:28)
--- NOTE | 2018-08-23 09:25 | PDOC PROGRESS REPORT ---
Subjective-OB Progress Note for:: 08/23/18 Subjective: Doing well, ready to go home, pain under control, hsb at bs, Physical Exam (OB) Vital Signs: Temp Pulse Resp BP Pulse Ox 98.2 F 106 H 24 H 121/69 97 08/23/18 07:28 08/23/18 07:28 08/23/18 07:28 08/23/18 07:28 08/23/18 07:28 Intake & Output 08/22/18 08/23/18 08/24/18 06:59 06:59 06:59 Intake Total 1150 3000 1600 Output Total 3175 Balance 1150 -175 1600 Weight 92 kg - PIH/Pre-Eclampsia DTR's: 2 + Clonus: Negative Headache: Absent Epigastric Pain: No Visual Changes: No - Dressing Removed: Yes Incision: Dressing Closure Type: opsite - Lochia Lochia Amount: Scant < 10 ml Lochia Color: Rubra/Red - Abdomen Description: Tender, Soft Hernia Present: No Fundal Description: Firm, Midline Fundal Height: u/u - u/2 Objective-Diagnostic Laboratory: 08/23/18 07:25 08/23/18 07:25 WBC 12.8 H RBC 3.12 L Hgb 9.6 L Hct 28.0 L MCV 90 MCH 30.6 MCHC 34.2 RDW 15.7 H Plt Count 208 Assessment and Plan(PN) - Assessment and Plan (1) Delivery by emergency caesarean section Is this a current diagnosis for this admission?: Yes - Time Spent with Patient Time with patient: Less than 15 minutes Medications reviewed and adjusted accordingly: Yes - Disposition Anticipated Discharge: Home Within: within 24 hours
[2018-08-23] MEDS: PRENATAL VITAMIN W DHA CAPSULE PO SCH (09:28)
[2018-08-23] MEDS: DOCUSATE SODIUM 100 MG CAPSULE PO SCH ×2 (09:28→17:23)
[2018-08-23] MEDS: FERROUS SULFATE 325 MG TABLET PO SCH ×2 (09:28→17:23)
[2018-08-23] MEDS: SENNOSIDES/DOCUSATE 8.6-50 MG 1 EACH TABLET PO SCH (09:28)
--- NOTE | 2018-08-23 09:30 | PDOC DISCHARGE SUMMARY ---
Final Diagnosis Discharge Date: 08/23/18 - Final Diagnosis (1) Delivery by emergency caesarean section Is this a current diagnosis for this admission?: Yes Discharge Data - Discharge Medication Prescriptions: Acetaminophen with Codeine [Tylenol #3 Tablet] 1 each PO Q4HP PRN #20 tablet PRN Reason: Ibuprofen [Motrin 800 mg Tablet] 800 mg PO Q6 #30 tablet Home Medications: Vit,Calc76/Iron/Folic [Prenatabs Rx Tablet] 1 each PO DAILY 07/05/18 Acetaminophen with Codeine [Tylenol #3 Tablet] 1 each PO Q4HP PRN #20 tablet 08/23/18 Ibuprofen [Motrin 800 mg Tablet] 800 mg PO Q6 #30 tablet 08/23/18 Gestational Age: 40.3 Reason(s) for Admission: Induction of Labor Procedures: NST, Ultrasound Intrapartum Procedure(s): : Low Cervical, Transverse - Data Baby 1 Male at 1 minute: 3 at 5 minutes: 7 at 10 minutes: 9 Weight: 3.685 kg Home with Mother: Yes Complications: No - Diagnosis Test Laboratory: Temp Pulse Resp BP Pulse Ox 98.2 F 106 H 24 H 121/69 97 08/23/18 07:28 08/23/18 07:28 08/23/18 07:28 08/23/18 07:28 08/23/18 07:28 08/19/18 08/19/18 08/22/18 20:00 20:30 05:46 RBC 4.18 3.51 L Hgb 12.6 10.5 L D Hct 37.2 31.5 L Urine Opiates Screen NEGATIVE 08/23/18 07:25 RBC 3.12 L Hgb 9.6 L Hct 28.0 L Urine Opiates Screen - Discharge information/Instructions Discharge Activity: Activity As Tolerated, No Lifting Over 10 Pounds, No Lifting/Push/Pulling, Pelvic Rest Discharge Diet: As Tolerated, Regular Disposition: HOME, SELF-CARE Follow up with: [facility] in: 1, Weeks
[2018-08-23] MEDS ORDERED: IBUPROFEN 800 MG TABLET PO SCH (14:00)
[2018-08-23 16:39] VITALS: BP 125/60
== END 2018-08-23 19:15 | disposition home or self-care (01) | DRG 788 ==
LOC: LR 19:36 → 2S 08-22 02:06
PROVIDERS: ADMIT Obstetrics & Gynecology; ATTEND Obstetrics & Gynecology
PROC: 10D00Z1 Extraction of Products of Conception, Low, Open Approach (ICD-10-PCS; principal; 2018-08-21)
PROC: 3E033VJ Introduction of Other Hormone into Peripheral Vein, Percutaneous Approach (ICD-10-PCS; 2018-08-21)
PROC: 10907ZC Drainage of Amniotic Fluid, Therapeutic from Products of Conception, Via Natural or Artificial Opening (ICD-10-PCS; 2018-08-21)
PROC: 3E0P7VZ Introduction of Hormone into Female Reproductive, Via Natural or Artificial Opening (ICD-10-PCS; 2018-08-21)
PROC: 0U7C7ZZ Dilation of Cervix, Via Natural or Artificial Opening (ICD-10-PCS; 2018-08-21)
PROC: 4A1HX4Z Monitoring of Products of Conception, Cardiac Electrical Activity, External Approach (ICD-10-PCS; 2018-08-21)
DX: O48.0 Post-term pregnancy (principal); O64.0XX0 Obstructed labor due to incomplete rotation of fetal head, not applicable or unspecified; O62.1 Secondary uterine inertia; O77.0 Labor and delivery complicated by meconium in amniotic fluid; Z3A.40 40 weeks gestation of pregnancy; Z37.0 Single live birth; Z91.018 Allergy to other foods; Z91.048 Other nonmedicinal substance allergy status
CPT/HCPCS: 1961; 36415; 80307; 81005; 85025; 85027; 86592; 86850; 86900; 86901; 94760; 94799; C1758; J0131; J0690; J1885; J2175; J2250; J2270; J2300; J2405; J2550; J2590; J3010; J3490; J7120; S0119